=== PATIENT | male | born 1975 | race Caucasian/White ===

== ENCOUNTER 2019-04-26 01:14 | Emergency (ER) | payer OTHER ==
[~2019-04-26] VITALS: Ht 190.5 cm; Wt 73.2 kg
--- NOTE | 2019-04-26 01:28 | NUR ---
PT REPORTS CHRONIC PAIN, TAKES GABAPENTIN. REPORTS HE WAS MOVING HEAVY ITEMS AND IT STARTED HURTING MORE. PT REPORTS LUMP IN CHEST, ERP AND THIS RN EVALUATED, BELIEVED TO BE PTS XIPHOID PROCESS. ERP IN ROOM TO EVAL PT. PT CONENCTED TO MONITORING, CALL LIGHT WITHIN REACH, ALL SAFETY MEASURES IN PLACE.
[2019-04-26] MEDS ORDERED: DIAZEPAM 5 MG TABLET ONE (01:36)
[2019-04-26] MEDS ORDERED: KETOROLAC 60 MG/2 ML ONE (01:36)
[2019-04-26] MEDS ORDERED: HYDROcodone/APAP 5/325 TABLET ONE (01:37)
[2019-04-26] MEDS ORDERED: DIAZEPAM 5 MG TABLET PO ONE (02:00)
[2019-04-26] MEDS ORDERED: HYDROcodone/APAP 5/325 TABLET PO ONE (02:00)
[2019-04-26] MEDS ORDERED: KETOROLAC 30 MG/1 ML IM ONE (02:00)
[2019-04-26 02:33] VITALS: BP 108/71
--- NOTE | 2019-04-26 02:33 | NUR ---
PT REPORTS DECREASED PAIN AFTER RECEIVING MEDICATIONS. PT UPDATED ON POC.
== END 2019-04-26 02:46 | disposition home or self-care (01) ==
LOC: ED 02:40
DX: S39.012A Strain of muscle, fascia and tendon of lower back, initial encounter (principal); F17.200 Nicotine dependence, unspecified, uncomplicated; X58.XXXA Exposure to other specified factors, initial encounter; Y93.89 Activity, other specified; Y92.89 Other specified places as the place of occurrence of the external cause; Y99.8 Other external cause status
CPT/HCPCS: 96372; 99283; J1885

== ENCOUNTER 2019-06-02 22:01 | Emergency (ER) | payer MEDICAID, OTHER ==
[~2019-06-02] VITALS: Ht 190.5 cm; Wt 73.2 kg
[2019-06-02 22:07] VITALS: BP 122/76
--- NOTE | 2019-06-02 23:24 | NUR ---
Patient/Caregiver given discharge instructions and they have confirmed that they understand the instructions. Patient ambulatory with steady gait.
== END 2019-06-02 23:26 | disposition home or self-care (01) ==
LOC: ED 23:01
DX: F32.9 Major depressive disorder, single episode, unspecified (principal); Z76.0 Encounter for issue of repeat prescription
CPT/HCPCS: 99281

== ENCOUNTER 2019-10-29 13:04 | Emergency (ER) | payer MEDICAID ==
[~2019-10-29] VITALS: Ht 190.5 cm; Wt 71.2 kg
[2019-10-29 13:45] VITALS: BP 104/60
[2019-10-29] MEDS ORDERED: CEFTRIAXONE 250 MG ONE (14:04)
[2019-10-29] MEDS ORDERED: CEFTRIAXONE 250 MG IM ONE (14:30)
== END 2019-10-29 14:29 | disposition home or self-care (01) ==
LOC: ED 14:00
DX: A60.01 Herpesviral infection of penis (principal); L98.9 Disorder of the skin and subcutaneous tissue, unspecified; G89.29 Other chronic pain
CPT/HCPCS: 96372; 99283; J0696

== ENCOUNTER 2020-04-27 22:01 | Emergency (ER) | payer MEDICAID ==
[~2020-04-27] VITALS: Ht 190.5 cm; Wt 77.3 kg
--- NOTE | 2020-04-27 22:19 | NUR ---
pt ambulated to room. occasional cough noted. pt breathing well, good aeration and oxygenation. o2 sat at 100% on RA. MD to bedside to eval pt.
--- NOTE | 2020-04-27 23:30 | NUR ---
pt awake and alert, on the phone with sister. pts niece called and asked for updates. permssion granted from pt to talk to her. niece updated to stability of pt and that we are caring for him at this time, and unsure if he will be admitted or not, until the doctor says either way. currently, pt, is awake and alert, fidgety in bed, good aeration and oxygenation. call light within reach.
[2020-04-27 23:47] VITALS: BP 124/71
== END 2020-04-27 23:49 | disposition home or self-care (01) ==
LOC: ED 23:00
DX: R06.02 Shortness of breath (principal); Z20.822 Contact with and (suspected) exposure to COVID-19; R07.89 Other chest pain; R50.9 Fever, unspecified; R05 Cough; F17.210 Nicotine dependence, cigarettes, uncomplicated
CPT/HCPCS: 71045; 87635; 93005; 99285; 99406